=== PATIENT | male | born 2005 | race Caucasian/White ===

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

== ENCOUNTER 2024-01-12 03:37 | Outpatient (CLI) | payer OTHER, SELFPAY ==
--- NOTE | 2024-01-12 | DI.RAD_ITS ---
Exam(s) XR HUMERUS RT EXAM: XR HUMERUS RT CLINICAL HISTORY: Closed displaced comminuted fx shaft of rt humerus with routine healing,. TECHNIQUE: 2D digital imaging was performed. COMPARISON: CR XR HUMERUS RT from 12/03/2023 FINDINGS: Two views. Again noted is fixation plate along the diaphysis of the humerus. There has been some healing at the oblique fracture in the region of superior aspect of the plate. Fracture line at this level is bare ly visible at this time. No new fractures evident. No hardware fracture or hardware loosening. No evidence of osteomyelitis. IMPRESSION: As above. DATA REPOSITORY: RADIATION DOSE DELIVERED:
== END 2024-01-12 03:57 ==
LOC: DI 03:37
PROVIDERS: PCP Nurse Practitioner Pediatrics; Visit Provider Student in an Organized Health Care Education/Training Program
DX: S42.351D Displaced comminuted fracture of shaft of humerus, right arm, subsequent encounter for fracture with routine healing (principal); X58.XXXD Exposure to other specified factors, subsequent encounter
CPT/HCPCS: 73060

== ENCOUNTER 2024-11-03 16:03 | Outpatient (REF) | payer OTHER, SELFPAY ==
[2024-11-05 11:54] LABS: Chlamydia Result Negative (Negative); GC Result Negative (Negative)
== END 2024-11-03 16:04 | disposition home or self-care (01) ==
LOC: LBN 16:03
PROVIDERS: PCP Nurse Practitioner Pediatrics; Referring Provider Nurse Practitioner Pediatrics; Visit Provider Nurse Practitioner Pediatrics
DX: Z11.3 Encounter for screening for infections with a predominantly sexual mode of transmission (principal)
CPT/HCPCS: 87491; 87591